=== PATIENT | male | born 1995 | race Hispanic/Latino ===

== ENCOUNTER 2018-08-07 18:48 | Emergency (ER) | payer SELFPAY ==
[2018-08-07 19:09] VITALS: O2SAT 100
[2018-08-07] MEDS ORDERED: MORPHINE SULFATE INJ 10 MG/ML VIAL IV ONE (19:22)
[2018-08-07] MEDS ORDERED: SODIUM CHLORIDE 0.9% 1000ML 1,000 ML IVS ONE (19:23)
--- NOTE | 2018-08-07 19:31 | ED.PDOC ---
History of Present Illness - General Chief Complaint: Abdominal Pain Stated Complaint: Nausea, Abdominal Pain, Headache Time Seen by Provider: 08/07/18 19:21 - History of Present Illness Initial Comments: THE PATIENT PRESENTS TO THE ED WITH COMPLAINT OF ABDOMINAL PAIN THAT HAS BEEN PRESENT FOR THE PAST 24 HOURS. THE PATIENT STATES THAT IT IS LEFT SIDED IN NATURE. THE PATIENT STATES THAT IT IS AGGRAVATED WITH MOVEMENT AND RELIEVED BY NOTHING. THE PATIENT STATES HE DOES HAVE CHILLS WITH THIS ISSUE. THE PATIENT STATES HIS ABDOMINAL PAIN IS SO BAD THAT IT GAVE HIM A MILD HEADACHE WHICH HE STATES THAT TAKING BY MOUTH [id number] MEDICATIONS DID HELP ALLEVIATE THE HEADACHE COMPONENT BUT HIS ABDOMINAL PAIN REMAINED. Abdominal Pain Onset Location: LUQ, LLQ Pain Radiation: no radiation Quality: moderate Timing/Duration: 24 hours Worsening Factors: movement Associated Symptoms: other - NAUSEA Review of Systems - Review of Systems Review of Systems: 08/07/18 19:31 A 10 PT REVIEW OF SYSTEMS WAS DONE AT THE PATIENT'S BEDSIDE AND IS NEGATIVE EXCEPT NOTED IN HIS HPI. Past Medical History (General) - Patient Medical History Hx Seizures: No Hx Asthma: No Hx Hypertension: No Hx Diabetes: No Surgical History: no surgical history - Vaccination History Hx Tetanus, Diphtheria Vaccination: No Hx Influenza Vaccination: No Hx Pneumococcal Vaccination: No - Social History Hx Tobacco Use: Yes - occ Hx Alcohol Use: Yes - last weekend Hx Substance Use: No Hx Substance Use Treatment: No Hx Depression: No Family Medical History - Family History Mother Family History: No Known Living Status: Unknown Physical Exam - Physical Exam General Appearance: Alert, No apparent distress, Well Developed, Well Groomed, Well Hydrated Eyes, Ears, Nose, Throat Exam: normal ENT inspection, pharynx normal Neck: non-tender, full range of motion Respiratory: chest non-tender, lungs clear Cardiovascular/Chest: normal peripheral pulses, regular rate, rhythm Gastrointestinal/Abdominal: normal bowel sounds, soft, no organomegaly, tenderness - LUQ/LLQ NOTED. NO REBOUND/GUARDING NOTED. Male Genitalia: normal genitalia, no hernia, other - TESTICLES ARE NL LIE/AXIS. Back Exam: normal inspection Extremity: normal range of motion, non-tender Neurologic: alert, oriented x 3, other - NO MENINGISMUS NOTED Skin Exam: normal color, warm/dry Lymphatic: no adenopathy Progress - Progress Progress: 08/07/18 19:33 MDM PT PRESENTATION APPEARS TO BE AN ACUTE EXACERBATION OF ABD PAIN. APPENDICITIS UNLIKELY DUE TO PRESENTATION WELL LOCATION OF PAIN. PANCREATITIS ALSO ON THE DDX WHICH WE WILL EVALUATE VIA LIPASE. DKA UNLIKELY DUE TO HOW THIS PATIENT PRESENTED AND NO COMPLAINTS OF SIGNS/SYMPTOMS OF THESE ISSUES. COLITIS ALSO A CONSIDERATION DUE TO PAIN LOCATION AND PRESENTATION WHICH WE WILL EVALUATE VIA CT SCAN. RENAL/URETERAL STONES ARE ALSO ON THE DIFFERENTIAL DUE TO PRESENTATION WELL LOCATION OF PAIN ON PRESENTATION. PT WILL RECEIVE BASICS LABS AND CT ABD/PEL TO EVALUATE FOR FOREMENTIONED INTRAABDOMINAL PATHOLOGY. 08/07/18 20:55 THE PATIENT IS RESTING AT THIS TIME AND APPEARS TO BE COMFORTABLE WELL USING HIS CELLULAR DEVICE WITH EASE. THE PATIENT HAS BEEN ADVISED OF HIS CBC/ METABOLIC PANEL RESULTS AT THIS TIME. HE IS ADVISED THAT WE WILL DISCUSS HIS REMAINING RESULTS WHEN AVAILABLE. WITH QUESTIONING, THE PATIENT STATES THAT HE DOES HAVE A MILD HEADACHE AT THIS TIME WHICH WAS WORSENED BY MORPHINE. 08/07/18 21:52 THE PATIENT COMPLAINS OF PERSISTENT HEADACHE AT THIS TIME. I HAVE OFFERED FURTHER TESTING INCLUDING A LUMBAR PUNCTURE WELL CT BRAIN AT THIS TIME IN ATTEMPT TO EXCLUDE EMERGENT PATHOLOGICAL CONDITIONS. THE PATIENT HAS DECLINED THIS INTERVENTION DUE TO WANTING TO GO HOME. THE PATIENT WAS ADVISED OF THE RISKS OF DECLINING MY RECOMMENDATIONS INCLUDING INCREASED MORBIDITY/MORTALITY WELL DELAY OF DIAGNOSIS. THE PATIENT HAS VERBALIZED THAT HE WOULD NO LONGER LIKE TO BE TREATED AT THIS TIME AND STATES THAT HE "JUST WANTS GET ON WITH HIS FXXXING LIFE AND GO EAT PUMPKIN PIE". THE PATIENT WAS ADVISED THAT HE MAY RETURN TO THE ED AT ANY TIME. I HAVE ASKED THE PATIENT MULTIPLE TIMES WITH HIS SIGNIFICANT OTHER IN THE ROOM HOW WE CAN GET HIM TO STAY AND TO COMPLETE HIS WORK UP BUT HE HAS DECLINED TO GIVE ME AN ANSWER MULTIPLE TIMES. IT SHOULD BE NOTED THAT XANDER WAS PRESENT DURING PART OF THE PATIENT'S INTERACTION. Departure - Departure Clinical Impression: Headache Abdominal pain Qualifiers: Abdominal location: unspecified location Qualified Code(s): R10.9 - Unspecified abdominal pain Disposition: Left Against Medical Advice Condition: Fair Departure Forms: ED Discharge - Pt. Copy, Patient Portal Self Enrollment Instructions: DI for Abdominal Pain-Adult, Headache, Adult Home Medications: Ambulatory Orders Albuterol Inhaler [Ventolin Hfa Inhaler] 108 mcg IN Q4HR PRN #1 inh 09/14/16 Azithromycin [Zithromax Z-Ernie] 1 ea PO DAILY #1 pack 09/14/16 Dextromethorphan-Guaifenesin [Mucinex Dm Maximum Streng 60-1200 mg] 1 tab PO BID #20 tab 09/14/16 diphenhydrAMINE HCL [Benadryl] 25 mg PO TID #30 cap 09/14/16 Additional Instructions: PLEASE SEE YOUR PCP TOMORROW AM. PLEASE RETURN TO THE ED SOON POSSIBLE TO COMPLETE YOUR WORK UP. PLEASE GO TO THE NEAREST ED IF YOU CONDITION WORSENS.
--- NOTE | 2018-08-07 20:50 | CT ---
EXAM DESCRIPTION: Abdomen/Pelvis w/Contrast CLINICAL HISTORY: 23 years Male HX LUQ ABDOMINAL PAIN. COMPARISON: None. TECHNIQUE: Contiguous axial images obtained through the abdomen and pelvis following IV contrast. Reformatted images obtained. This exam was performed according to our department optimization program which includes automated exposure control, adjustment of the mA and/or kv according to patient size and/or use of iterative reconstruction technique. FINDINGS: The liver appears unremarkable. The spleen and pancreas appear unremarkable. No adrenal masses. The kidneys appear unremarkable. No hydronephrosis. The gallbladder is visualized. No aneurysmal dilatation of the aorta. No bowel obstruction. The appendix is unremarkable. No significant free fluid noted. IMPRESSION: No acute abnormality is identified. Electronically signed by: Mony Moncada MD 08/07/2018 8:48 PM ASSISTANT TO THE CEO
[2018-08-07] MEDS ORDERED: PROMETHAZINE HCL INJ 25 MG in SODIUM CHLORIDE 0.9% 50ML 50 ML IVPB ONE (20:54)
[2018-08-07] MEDS ORDERED: SODIUM CHLORIDE 0.9% 50ML 50 ML ONE (21:37)
[2018-08-07] MEDS ORDERED: PROMETHAZINE HCL INJ 25 MG/ML VIAL ONE (21:37)
[2018-08-07 22:39] VITALS: BP 110/75; TEMP 97.5
== END 2018-08-07 21:55 | disposition left against medical advice (07) ==
LOC: ER 18:48
DX: R10.12 Left upper quadrant pain (principal); R10.32 Left lower quadrant pain; R51 Headache; R11.0 Nausea; Z53.29 Procedure and treatment not carried out because of patient's decision for other reasons; Z72.0 Tobacco use
CPT/HCPCS: 36415; 74177; 80053; 81001; 83690; 85025; A4216; J2270; J2550; J7030